=== PATIENT | female | born 1985 | race Caucasian/White ===

== ENCOUNTER 2022-06-29 17:34 | Emergency (ER) | payer OTHER ==
[2022-06-29 17:52] VITALS: BP 132/87; PULSE 87; RESP 18; TEMP 98.6; BMI 23.2
[2022-06-29] MEDS ORDERED: SODIUM CHLORIDE 0.9% 500 ML INFUS.BAG IV ONE (19:38)
[2022-06-29] MEDS ORDERED: ACETAMINOPHEN 1000 MG/100 ML BAG IVPB ONE (19:38)
[2022-06-29] MEDS ORDERED: METOCLOPRAMIDE HCL INJECTION 10 MG/2 ML VIAL IVPUSH ONE (19:39)
[2022-06-29] MEDS ORDERED: METOCLOPRAMIDE HCL INJECTION 10 MG/2 ML VIAL ONE (19:43)
[2022-06-29] MEDS ORDERED: ACETAMINOPHEN INJECTION 100 ML IVPB ONE (19:46)
== END 2022-06-29 21:22 | disposition home or self-care (01) ==
LOC: JERFT 17:34 → JER 17:34 → JERFT 21:22
PROC: 3E033GC Introduction of Other Therapeutic Substance into Peripheral Vein, Percutaneous Approach (ICD-10-PCS; principal; 2022-06-29)
DX: O26.891 Other specified pregnancy related conditions, first trimester (principal); R51.9 Headache, unspecified; Z3A.11 11 weeks gestation of pregnancy
CPT/HCPCS: 99284-25

== ENCOUNTER 2023-12-07 13:56 | Emergency (ER) | payer BC, OTHER ==
[2023-12-07 14:03] VITALS: BMI 25.0
[2023-12-07 15:11] LABS: BASO % 0.2 % (0-2.0); EOS % 0.2 % (0-4.5); HEMATOCRIT 35.1 % (32.4-45.2); HEMOGLOBIN 12.2 GM/dL (10.7-15.3); LYMPH % 11.7 % (8-40); MCH 32.7 pg (25.7-33.7); MCHC 34.9 g/dl (32.0-36.0); MEAN CELL VOLUME 93.7 fl (80-96); MEAN PLT VOLUME 11.8 fl (7.5-11.1); MONO % 6.7 % (3.8-10.2); NEUT % 81.2 % (42.8-82.8); PLATELET COUNT 131 10^3/uL (134-434); RBC 3.75 M/mm3 (3.60-5.2); RDW 13.4 % (11.6-15.6); WHITE BLOOD COUNT 9.8 K/mm3 (4.0-10.0)
[2023-12-07 15:16] LABS: PH,URINE 7.5 (5.0-8.0); URINE APPEARANCE CLEAR; URINE BILIRUBIN NEGATIVE (NEGATIVE); URINE COLOR YELLOW; URINE GLUCOSE (UA) NEGATIVE (NEGATIVE); URINE KETONE NEGATIVE (NEGATIVE); URINE LEUK ESTERASE NEGATIVE (NEGATIVE); URINE NITRITE NEGATIVE (NEGATIVE); URINE PROTEIN NEGATIVE (NEGATIVE); URINE UROBILINOGEN 0.2 mg/dL (0.2-1.0)
[2023-12-07 15:17] LABS: INR 0.96 (0.83-1.09); PROTHROMBIN TIME (PATIENT) 11.1 SEC (9.7-13.0)
[2023-12-07 15:20] LABS: ACTIVATED PTT 25.3 SECONDS (25.2-36.5)
[2023-12-07 15:34] LABS: POTASSIUM 4.4 mmol/L (3.5-5.1)
[2023-12-07 15:36] LABS: ALBUMIN 3.1 g/dl (3.4-5.0); BLOOD UREA NITROGEN 9.3 mg/dL (7-18); CALCIUM 8.8 mg/dL (8.5-10.1); MAGNESIUM 1.9 mg/dL (1.8-2.4)
[2023-12-07 15:39] LABS: CREATININE 0.5 mg/dL (0.55-1.3)
[2023-12-07 15:41] LABS: BILIRUBIN,TOTAL 0.2 mg/dL (0.2-1); TOT PROT 6.8 g/dl (6.4-8.2)
[2023-12-07 17:00] VITALS: BP 109/65; PULSE 63; RESP 20; TEMP 98.1
== END 2023-12-07 17:55 | disposition home or self-care (01) ==
LOC: JER 13:56
DX: O99.412 Diseases of the circulatory system complicating pregnancy, second trimester (principal); R00.2 Palpitations; R07.89 Other chest pain; O26.892 Other specified pregnancy related conditions, second trimester; R53.1 Weakness; R51.9 Headache, unspecified; R42 Dizziness and giddiness; Z3A.25 25 weeks gestation of pregnancy; Z20.822 Contact with and (suspected) exposure to COVID-19
CPT/HCPCS: 0241U-QW; 36415; 80053; 81003; 83735; 84443; 84484; 84702; 85025; 85610; 85730; 87086; 93005; 93010; 99284-25

== ENCOUNTER 2023-12-15 00:30 | Observation (INO) | payer BC, OTHER ==
[2023-12-15 02:03] LABS: URINE APPEARANCE CLEAR; URINE BILIRUBIN NEGATIVE (NEGATIVE); URINE COLOR YELLOW; URINE GLUCOSE (UA) NEGATIVE (NEGATIVE); URINE KETONE NEGATIVE (NEGATIVE); URINE LEUK ESTERASE NEGATIVE (NEGATIVE); URINE NITRITE NEGATIVE (NEGATIVE); URINE PROTEIN NEGATIVE (NEGATIVE); URINE UROBILINOGEN 0.2 mg/dL (0.2-1.0)
[2023-12-15] MEDS: LACTATED RINGERS SOLUTION 1,000 ML IV SCH (02:30)
[2023-12-15 03:21] VITALS: BMI 25.4
[2023-12-15 10:32] VITALS: BP 107/61; PULSE 69; RESP 16; TEMP 97.5
== END 2023-12-15 10:35 | disposition home or self-care (01) ==
LOC: JDEL 00:30 → JLDR 02:50
PROVIDERS: ADMIT Obstetrics & Gynecology; ATTEND Obstetrics & Gynecology
PROC: 3E0337Z Introduction of Electrolytic and Water Balance Substance into Peripheral Vein, Percutaneous Approach (ICD-10-PCS; principal; 2023-12-15)
DX: O09.813 Supervision of pregnancy resulting from assisted reproductive technology, third trimester (principal); O09.523 Supervision of elderly multigravida, third trimester; Z3A.27 27 weeks gestation of pregnancy; R10.9 Unspecified abdominal pain
CPT/HCPCS: 59025; 76801-TC; 76830-TC; 81003; G0378

== ENCOUNTER 2024-01-15 14:06 | Emergency (ER) | payer BC, OTHER ==
[2024-01-15 14:16] VITALS: BMI 25.4
[2024-01-15 15:48] LABS: BASO % 0.1 % (0-2.0); EOS % 0.1 % (0-4.5); HEMATOCRIT 33.8 % (32.4-45.2); HEMOGLOBIN 11.3 GM/dL (10.7-15.3); LYMPH % 12.9 % (8-40); MCH 31.8 pg (25.7-33.7); MCHC 33.5 g/dl (32.0-36.0); MEAN CELL VOLUME 94.9 fl (80-96); MEAN PLT VOLUME 11.2 fl (7.5-11.1); MONO % 7.8 % (3.8-10.2); NEUT % 79.1 % (42.8-82.8); PLATELET COUNT 126 10^3/uL (134-434); RBC 3.56 M/mm3 (3.60-5.2); RDW 13.5 % (11.6-15.6); WHITE BLOOD COUNT 9.2 K/mm3 (4.0-10.0)
[2024-01-15 15:59] LABS: ALLENS TEST POSITIVE; ARTERIAL BLD GAS O2 SATURATION 98.2 % (95-98); ARTERIAL BLOOD GAS PO2 108.5 mmHg (80-100); ARTERIAL BLOOD GAS pH 7.454 (7.350-7.450)
[2024-01-15 16:09] LABS: POTASSIUM 4.2 mmol/L (3.5-5.1)
[2024-01-15 16:11] LABS: CALCIUM 9.4 mg/dL (8.5-10.1)
[2024-01-15 16:12] LABS: BLOOD UREA NITROGEN 9.3 mg/dL (7-18)
[2024-01-15 16:15] LABS: CREATININE 0.7 mg/dL (0.55-1.3)
[2024-01-15 16:16] LABS: BILIRUBIN,TOTAL 0.3 mg/dL (0.2-1); TOT PROT 6.2 g/dl (6.4-8.2)
[2024-01-15 17:37] VITALS: BP 104/71; PULSE 67; RESP 20; TEMP 97.7
== END 2024-01-15 19:30 | disposition home or self-care (01) ==
LOC: JER 14:06
DX: O09.893 Supervision of other high risk pregnancies, third trimester (principal); O26.893 Other specified pregnancy related conditions, third trimester; R10.13 Epigastric pain; O99.891 Other specified diseases and conditions complicating pregnancy; R42 Dizziness and giddiness; R11.0 Nausea; Z3A.30 30 weeks gestation of pregnancy
CPT/HCPCS: 36415; 36600; 80053; 82375; 82803; 85025; 99283-25

== ENCOUNTER 2024-03-21 07:05 | Inpatient (IN) | payer BC, OTHER ==
[2024-03-21] MEDS: ELECTROLYTE-148 SOLN 1,000 ML IV SCH (08:00)
[2024-03-21] MEDS ORDERED: BUTORPHANOL TARTRATE 2 MG/ML VIAL IVPB PRN (08:00)
[2024-03-21] MEDS: DINOPROSTONE 10 MG VAGINAL SUPPOSITORY VG ONE (08:05)
[2024-03-21 09:38] VITALS: BMI 25.0
[2024-03-21 10:11] LABS: BASO % 0.5 % (0-2.0); EOS % 0.3 % (0-4.5); HEMATOCRIT 33.1 % (32.4-45.2); HEMOGLOBIN 11.2 GM/dL (10.7-15.3); LYMPH % 16.1 % (8-40); MCH 32.1 pg (25.7-33.7); MEAN CELL VOLUME 94.4 fl (80-96); MONO % 8.2 % (3.8-10.2); NEUT % 74.9 % (42.8-82.8); PLATELET COUNT 105 10^3/uL (134-434); RDW 13.1 % (11.6-15.6); WHITE BLOOD COUNT 7.4 K/mm3 (4.0-10.0)
[2024-03-21 10:18] LABS: INR 0.94 (0.83-1.09); PROTHROMBIN TIME (PATIENT) 10.6 SEC (9.7-13.0)
[2024-03-21 10:21] LABS: ACTIVATED PTT 25.1 SECONDS (25.2-36.5)
[2024-03-21 10:40] LABS: POTASSIUM 4.2 mmol/L (3.5-5.1)
[2024-03-21 10:42] LABS: CALCIUM 8.6 mg/dL (8.5-10.1)
[2024-03-21 10:46] LABS: CREATININE 0.6 mg/dL (0.55-1.3)
[2024-03-21 20:00] VITALS: RESP 18
[2024-03-21] MEDS ORDERED: OXYTOCIN 30 UNITS in 0.9% NS 30 UNIT/500 ML INFUS.BAG IVPB ONE (21:52)
[2024-03-21] MEDS: OXYTOCIN 30 UNITS in 0.9% NS 30 UNIT/500 ML INFUS.BAG IVPB SCH (22:00)
[2024-03-22] MEDS ORDERED: FENTANYL/BUPIVACAINE/NS/PF - PCEA - 50 ML DISP.SYRIN EP ONE ×2 (09:03→12:28)
[2024-03-22] MEDS: FENTANYL/BUPIVACAINE/NS/PF - PCEA - 50 ML DISP.SYRIN EP SCH (09:30)
[2024-03-22] MEDS: PROMETHAZINE HCL 25 MG/1 ML VIAL IVPB ONE (10:55)
[2024-03-22] MEDS ORDERED: NALOXONE HCL 0.4 MG/ML VIAL IVPUSH PRN (11:01)
[2024-03-22] MEDS: ACETAMINOPHEN 325 MG TABLET (FP) PO PRN (13:05)
[2024-03-22] MEDS ORDERED: LIDOCAINE HCL 1% PRESERVATIVE FREE - 30ML VIAL ONE (13:36)
[2024-03-22] MEDS ORDERED: OXYTOCIN 20 UNITS in 0.9% NS 20 UNIT/1,000 ML INFUS.BAG IV ONE (13:36)
[2024-03-22] MEDS: METHYLERGONOVINE MALEATE 0.2 MG/1 ML AMP IM ONE (14:34)
[2024-03-22] MEDS: OXYTOCIN 20 UNITS in 0.9% NS 20 UNIT/1,000 ML INFUS.BAG IV SCH (14:40)
[2024-03-22 15:01] LABS: CORD BASE EXCESS -4.4 mmol/L (0-2); CORD HCO3 20.8 mmHg (20-29); CORD pH 7.345 (7.14-7.44)
[2024-03-22 15:02] LABS: CORD BASE EXCESS -4.3 mmol/L (0-2); CORD HCO3 23.5 mmHg (20-29); CORD PCO2 53.4 mmHg (30-78); CORD pH 7.262 (7.14-7.44)
[2024-03-22] MEDS ORDERED: ACETAMINOPHEN 325 MG TABLET (FP) ONE (15:03)
[2024-03-22] MEDS ORDERED: BENZOCAINE 28 GM HEMORRHOIDAL OINTMENT TP PRN (15:24)
[2024-03-22] MEDS ORDERED: BISACODYL 10 MG SUPP.RECT RC PRN (15:24)
[2024-03-22] MEDS ORDERED: METHYLERGONOVINE MALEATE 0.2 MG/1 ML AMP IM PRN (15:24)
[2024-03-22] MEDS: IBUPROFEN 600 MG TABLET (FP) PO PRN (16:10)
[2024-03-22] MEDS ORDERED: IBUPROFEN 600 MG TABLET (FP) PO ONE (16:10)
[2024-03-22] MEDS: WITCH HAZEL 50% (TUCKS) 40 PAD/JAR PAD TP PRN (20:29)
[2024-03-22] MEDS: BENZOCAINE 20% 57 GM BOTTLE TP PRN (20:29)
[2024-03-23 09:00] LABS: BASO % 0.2 % (0-2.0); EOS % 0.1 % (0-4.5); HEMATOCRIT 26.1 % (32.4-45.2); HEMOGLOBIN 8.8 GM/dL (10.7-15.3); LYMPH % 10.3 % (8-40); MCH 31.6 pg (25.7-33.7); MCHC 33.6 g/dl (32.0-36.0); MEAN CELL VOLUME 94.2 fl (80-96); MONO % 6.6 % (3.8-10.2); NEUT % 82.8 % (42.8-82.8); PLATELET COUNT 90 10^3/uL (134-434); RBC 2.77 M/mm3 (3.60-5.2); RDW 13.1 % (11.6-15.6)
[2024-03-23] MEDS: oxyCODONE HCL 5 MG TABLET PO PRN (10:25)
[2024-03-23] MEDS: FERROUS SO4 325 MG TABLET (FP) PO SCH (21:50)
[2024-03-23] MEDS: SENNOSIDES/DOCUSATE COMBO (SENNA PLUS) TABLET (UD) PO PRN (21:50)
[2024-03-23] MEDS: DOCUSATE SODIUM 100 MG CAPSULE (FP) PO SCH (21:50)
[2024-03-24 08:14] LABS: HEMATOCRIT 24.9 % (32.4-45.2); HEMOGLOBIN 8.4 GM/dL (10.7-15.3); MCH 31.7 pg (25.7-33.7); MCHC 33.8 g/dl (32.0-36.0); MEAN CELL VOLUME 93.7 fl (80-96); MEAN PLT VOLUME 11.6 fl (7.5-11.1); PLATELET COUNT 93 10^3/uL (134-434); RBC 2.66 M/mm3 (3.60-5.2); RDW 13.6 % (11.6-15.6); WHITE BLOOD COUNT 14.1 K/mm3 (4.0-10.0)
[2024-03-24] MEDS ORDERED: DIPHTH,PERTUSS(ACELL),TET 0.5 ML DISP.SYRIN IM ONE (09:00)
[2024-03-25 10:50] VITALS: BP 125/70; PULSE 93; TEMP 98.3
[2024-03-25 11:24] LABS: BASO % 0.4 % (0-2.0); EOS % 0.8 % (0-4.5); HEMATOCRIT 25.7 % (32.4-45.2); HEMOGLOBIN 8.6 GM/dL (10.7-15.3); LYMPH % 7.6 % (8-40); MCHC 33.7 g/dl (32.0-36.0); MEAN PLT VOLUME 10.9 fl (7.5-11.1); MONO % 5.4 % (3.8-10.2); NEUT % 85.8 % (42.8-82.8); PLATELET COUNT 105 10^3/uL (134-434); RDW 13.2 % (11.6-15.6); WHITE BLOOD COUNT 11.1 K/mm3 (4.0-10.0)
== END 2024-03-25 21:00 | disposition home or self-care (01) | DRG 806 ==
LOC: JLDR 07:05 → J3W 03-22 16:54
PROVIDERS: ADMIT Obstetrics & Gynecology; ATTEND Obstetrics & Gynecology
PROC: 0W8NXZZ Division of Female Perineum, External Approach (ICD-10-PCS; principal; 2024-03-22)
PROC: 10E0XZZ Delivery of Products of Conception, External Approach (ICD-10-PCS; 2024-03-22)
DX: O48.0 Post-term pregnancy (principal); O99.12 Other diseases of the blood and blood-forming organs and certain disorders involving the immune mechanism complicating childbirth; Z37.0 Single live birth; Z3A.40 40 weeks gestation of pregnancy; D69.6 Thrombocytopenia, unspecified; D57.3 Sickle-cell trait
CPT/HCPCS: 36415; 36600; 59409; 80048; 82803; 85025; 85027; 85610; 85730; 86780; 86850; 86900; 86901